=== PATIENT | male | born 1955 | race Caucasian/White ===

== ENCOUNTER 2022-07-23 16:45 | Outpatient (REF) | payer MEDICARE, SELFPAY ==
--- NOTE | ~2022-07-23 | XR_ITS ---
EXAMINATION: XR WRIST, LEFT XR HAND, LEFT CLINICAL INFORMATION: Left hand contusion COMPARISON: None available. TECHNIQUE: 4 views of the right hand and wrist. FINDINGS: LEFT WRIST: Joint spaces are maintained. There is some mild spurring seen about the first carpal metacarpal joint. There is an approximately 2 mm calcific density seen about the radial aspect of the trapezium. There is some soft tissue edema present in this location and possible avulsion injury cannot be excluded. This would be an unusual injury and may represent sequela of previous injury. Clinical correlation to site of pain is suggested. LEFT HAND: No acute fracture or dislocation of the left hand is identified. There is some degenerative spurring with some soft tissue prominence seen involving the second and third proximal interphalangeal joints. There is minimal spurring seen about the second and third distal interphalangeal joints. There is some soft tissue swelling seen about the dorsum of the distal metacarpals and metacarpophalangeal joints. XR/XR hand wrist LT IMPRESSION: No definite acute fracture or dislocation of the left hand and wrist. Degenerative changes as described. Possible avulsion injury to the radial aspect of the trapezium. Clinical correlation to site of pain is recommended.
== END 2022-07-23 16:46 | disposition home or self-care (01) ==
LOC: HO.HMGCX 16:45
PROVIDERS: Visit Provider Internal Medicine
DX: S60.222A Contusion of left hand, initial encounter (principal)
CPT/HCPCS: 73110; 73130

== ENCOUNTER 2024-02-08 13:03 | Outpatient (AMB) | payer MEDICARE, SELFPAY ==
[2024-02-08 13:52] VITALS: BP 140/100; PULSE 98; O2SAT 97
--- NOTE | 2024-02-08 13:52 | MHC.OFFWIV ---
Intake Vital Signs 02/08/24 13:52 Weight 206 lb BP 140/100 H Blood Pressure Location Rt brachial Position Sitting Pulse 98 Pulse Source Pulse Oximeter Pulse Oximetry (%) 97 Oxygen Delivery Method Room Air Intake Visit Reasons: EP cut on thumb Intake Note: Patient here for cut on thumb on left hand. Allergies No Known Allergies Allergy (Verified 02/08/24 13:54) HPI HPI Comments History of Present Illness Details This is a 68-year-old male presenting for evaluation of a laceration to his left thumb that occurred just prior to arrival. Patient states is active with the [facility] and his most recent tetanus immunization was less than 5 years ago. Patient states that he was reaching into his trash barrel and cut his left thumb on a broken crystal which he had recently placed in the trash. Patient has no concerns of a retained foreign body. [facility] Social History Patient Tobacco Use Status: Former Tobacco user Review of Systems Const All systems reviewed & are unremarkable except as noted in HPI and below Eyes Reports no additional complaints ENT Reports no additional complaints Card Reports no additional complaints Resp Reports no additional complaints GI Reports no additional complaints Reports no additional complaints Musc Reports no additional complaints Skin/Breast Reports lesions (Laceration left thumb) Neuro Reports no additional complaints Psych Reports no additional complaints Endo Reports no additional complaints Physical Exam Vital Signs: Patient is hypertensive. Const General: cooperative, healthy appearing, comfortable, no acute distress, well developed, alert, awake, Physically active and anxious Nutritional Appearance: average body habitus Orientation/consciousness: patient oriented x3 Limitations: no limitations Skin Other: 1.5cm linear laceration on the dorsal surface of the left thumb with residual bleeding; no evidence of a retained foreign body. Neuro Other: Sensation is intact throughout the left hand and specifically left 1st digit. General: patient oriented x3 Extrem Left upper extremity: hand (laceration L. 1st digit, ROM intact throughout left thumb) Psych Appearance: grossly normal Mental Status: mental status grossly normal Insight: Good insight present (Psych) Judgement: Good judgement present (Psych) Office Procedures Laceration Repair Procedure EMLA: 2% Lidocaine Text: After discussion of risk and benefits, written informed consent was obtained. The area was cleaned, prepped, and draped using sterile technique. The wound was debrided of any foreign material or devitalized tissue. Wound edges were approximated and closed using [seven simple interrupted 5-0 Prolene sutures]. Standard wound dressing was applied. Wound care instructions were given [and the patient was instructed to return for any signs of infection including increased pain, redness, discharge or fever.]. The patient tolerated the procedure well. The patient was instructed to return for increased redness or red streaking, pain, swelling, pus, fevers, chills, or any other signs or symptoms of infection or worsening. Patient was instructed to return for suture removal in [7 days]. Assessment & Plan Assessment & Plan (1) Laceration of left thumb: Comment: Laceration is repaired with 7 simple interrupted sutures. Please see procedure note. Tetanus immunization does not require update at this time. Code(s): S61.012A - Laceration without foreign body of left thumb without damage to nail, initial encounter Qualifiers: Encounter type: initial encounter Damage to nail status: without damage Foreign body presence: without foreign body Qualified Code(s): S61.012A - Laceration without foreign body of left thumb without damage to nail, initial encounter Plan: Patient is given suture care instructions and will return in 7 days for suture removal, sooner for any signs of infection. Coding Level of Care Code New Pt Level 4 (13394) Diagnoses Laceration of left thumb without foreign body without damage to nail, initial encounter S61.012A Encounter type: initial encounter Damage to nail status: without damage Foreign body presence: without foreign body Time Spent (min) 40
== END 2024-02-08 14:36 | disposition home or self-care (01) ==
PROVIDERS: Visit Provider Physician Assistant
DX: S61.012A Laceration without foreign body of left thumb without damage to nail, initial encounter (principal)

== ENCOUNTER → 2024-02-08 13:03 | Outpatient (BNVA) | payer MEDICARE, SELFPAY | DX: S61.012A Laceration without foreign body of left thumb without damage to nail, initial encounter (principal) | CPT/HCPCS: 12001; 99202 ==